=== PATIENT | male | born 1990 | race Caucasian/White ===

== ENCOUNTER 2019-12-11 17:29 | Emergency (ER) | payer OTHER ==
[~2019-12-11] VITALS: Ht 177.8 cm; Wt 86.2 kg
[2019-12-11 17:31] VITALS: BP 131/73
--- NOTE | 2019-12-11 17:42 | NUR ---
PT AMB TO BED 12.
--- NOTE | 2019-12-11 17:45 | NUR ---
28 Y/O MALE FROM HOME C/O LT EYE DISCOMFORT X 7 DAYS AND BLURRED VISION TO LT EYE STARTING YESTERDAY. STATES PAIN HAS DECREASED BUT BLURRED VISION PERSISTS. DENIES DRAINAGE TO EYE. DENIES TRAUMA/INJURY. PERRL. STATES HE HAS NOT BEEN TAKING MEDICATION FOR PAIN. VSS MEDHX: DENIES ALLERGIES: KHRIS
--- NOTE | 2019-12-11 17:51 | NUR ---
DR DE LA CRUZ AT BEDSIDE EXAMINING PT
[2019-12-11] MEDS ORDERED: TOMOMETER 1 DEV DEV MC ONE (17:55)
[2019-12-11] MEDS ORDERED: FLUORESCEIN OPTH STRIP 1 MG OP ONE (17:55)
[2019-12-11] MEDS ORDERED: TETRACAINE HCL/PF 0.5% OPTH 4 ML BTL OP ONE (17:55)
[2019-12-11 18:27] VITALS: BP 129/79
--- NOTE | 2019-12-11 18:28 | NUR ---
Patient discharged with v/s stable. Written and verbal after care instructions given and explained. Patient verbalized understanding. Ambulatory with steady gait. All questions addressed prior to discharge. Advised to follow up with PMD.
== END 2019-12-11 18:28 | disposition home or self-care (01) ==
LOC: MED 17:29
DX: H53.8 Other visual disturbances (principal)
CPT/HCPCS: 99284